=== PATIENT | female | born 1960 | race Asian ===

== ENCOUNTER 2017-10-31 23:50 | Emergency (ER) | payer OTHER ==
[~2017-10-31] VITALS: Ht 160 cm; Wt 70.3 kg
--- NOTE | 2017-10-31 23:55 | NUR ---
[facility] BEDSIDE TAKING REPORT FROM PATIENT.
[2017-11-01] MEDS ORDERED: TDAP [DIPH/PERTUSSIS/TET] 0.5 ML VIAL IM ONE ×2 (00:19)
--- NOTE | 2017-11-01 02:27 | NUR ---
ASSUMED D/C CARE ONLY AT THIS TIME ON BEHALF OF PRIMARY NURSE MARGARET. Patient discharged to home in stable condition. Written and verbal after care instructions given. Patient verbalizes understanding of instruction. Ambulatory with a steady gait without any s/s of distress or c/o. Resp even and unlabroed.
[2017-11-01 02:29] VITALS: BP 115/76
== END 2017-11-01 02:30 | disposition home or self-care (01) ==
LOC: EDBD → ER 23:54
DX: S01.01XA Laceration without foreign body of scalp, initial encounter (principal); F20.9 Schizophrenia, unspecified; F31.9 Bipolar disorder, unspecified; Z88.5 Allergy status to narcotic agent; Y04.8XXA Assault by other bodily force, initial encounter; Y93.89 Activity, other specified; Y92.89 Other specified places as the place of occurrence of the external cause; Y99.8 Other external cause status
CPT/HCPCS: 70450-TC; 90715; A4606; A6402; Z7610

== ENCOUNTER 2017-11-29 16:40 | Emergency (ER) | payer OTHER ==
[~2017-11-29] VITALS: Ht 160 cm; Wt 72.6 kg
[2017-11-29 16:45] VITALS: BP 158/100
== END 2017-11-29 17:50 | disposition home or self-care (01) ==
LOC: ER 16:42
DX: S01.01XD Laceration without foreign body of scalp, subsequent encounter (principal); F20.9 Schizophrenia, unspecified; F31.9 Bipolar disorder, unspecified; Z88.6 Allergy status to analgesic agent; X58.XXXD Exposure to other specified factors, subsequent encounter
CPT/HCPCS: 99281; A4606; Z7610; Z7502

== ENCOUNTER 2019-01-23 20:46 | Emergency (ER) | payer OTHER ==
[~2019-01-23] VITALS: Ht 160 cm; Wt 81.6 kg
[2019-01-23 20:50] VITALS: BP 137/86
== END 2019-01-24 01:04 | disposition home or self-care (01) ==
LOC: ER 20:50
DX: S83.8X2A Sprain of other specified parts of left knee, initial encounter (principal); F20.9 Schizophrenia, unspecified; F31.9 Bipolar disorder, unspecified; Z88.5 Allergy status to narcotic agent; Z59.0 Homelessness; X50.1XXA Overexertion from prolonged static or awkward postures, initial encounter; Y93.89 Activity, other specified; Y92.89 Other specified places as the place of occurrence of the external cause; Y99.8 Other external cause status
CPT/HCPCS: 73564-TC